=== PATIENT | male | born 1945 | race Caucasian/White ===

== ENCOUNTER 2020-12-26 16:22 | Inpatient (IN) ==
[2020-12-26] MEDS ORDERED: Folic Acid 1 MG in 0.9 % Sodium Chloride 50 ML IVPB ONE (17:07)
[2020-12-26] MEDS ORDERED: *HR* LORazepam 2 MG/ML VIAL IVP ONE (17:07)
[2020-12-26] MEDS ORDERED: Thiamine (B-1) 200 MG/2 ML VIAL IM ONE (17:07)
[2020-12-26] MEDS ORDERED: 0.9 % Sodium Chloride 1,000 ML IVC ONE (17:07)
[2020-12-26 17:25] LABS: Basophils % 0.4 %; Eosinophils # 0.1 K/mcL (0.0-0.6); Eosinophils % 0.9 %; Hematocrit 38.4 % (37.5-50.1); Hemoglobin 13.6 g/dL (12.9-16.9); Immature Granulocytes % 0.7 % (0-4); Lymphocytes # 3.1 K/mcL (0.6-4.6); Mean Corpuscular HGB Conc 35.4 g/dL (31.6-35.5); Mean Corpuscular Volume 81.9 fL (83.0-100.0); Mean Platelet Volume 11.4 fL (9.4-12.4); Monocytes # 0.9 K/mcL (0.0-1.3); Monocytes % 12.9 %; Neutrophils # 2.8 K/mcL (1.6-8.9); Platelet Count 182 K/mcL (140-400); Red Blood Count 4.69 M/mcL (4.19-5.50); Red Cell Distribution Width 12.2 % (11.5-14.5); Segmented Neutrophils % 40.1 %
[2020-12-26 17:53] LABS: Alanine Aminotransferase 242 Units/L (7-52); Albumin 4.3 g/dL (3.5-5.7); Albumin/Globulin Ratio 1.5 (1.1-2.2); Alkaline Phosphatase 86 Units/L (34-104); Aspartate Amino Transferase 170 Units/L (13-39); BUN/Creatinine Ratio 9 (6-26); Bilirubin,Total 1.3 mg/dL (0.3-1.0); Blood Urea Nitrogen 11 mg/dL (8-23); Calcium 8.7 mg/dL (8.6-10.3); Carbon Dioxide 22 mEq/L (23-29); Chloride 85 mEq/L (98-107); Ethanol < 10 mg/dL (Less than 10); Globulin 2.9 g/dL (2.4-3.5); Glucose 229 mg/dL (70-105); Lipase 15 Units/L (11-82); Magnesium 1.8 mg/dL (1.6-2.6); Osmolality,Calculated 253 (280-300); Potassium 4.2 mEq/L (3.5-5.1); Sodium 118 mEq/L (136-145); Total Protein 7.2 g/dL (6.4-8.9); eGFR For African Americans > 60 (> 60); eGFR For Non-African Americans > 60 (> 60)
[2020-12-26 19:44] LABS: Bacteria,Urine Few per hpf (None-Few); Bilirubin,Urine Negative (Negative); Blood,Urine Negative (Negative); Clarity,Urine Clear (Clear); Color,Urine Light-Yellow (Yellow); Glucose,Urine (UA) Normal (Normal); Hyaline Casts,Urine Few per lpf (None Seen); Ketones,Urine 10 mg/dL (Negative); Leukocyte Esterase,Urine Negative (Negative); Nitrite,Urine Negative (Negative); Protein,Urine 30 mg/dL (Neg-Trace); RBC,Urine 0-3 per hpf (0-3); Specific Gravity,Urine 1.009 (1.010-1.025); Urobilinogen,Urine Normal (Normal); WBC,Urine 0-3 per hpf (0-3)
[2020-12-26 20:00] LABS: Amphetamine Screen,Urine Negative ng/mL (Cutoff=1000); Barbiturate Screen,Urine Negative ng/mL (Cutoff=200); Benzodiazepines Screen,Urine Negative ng/mL (Cutoff=200); Cannabinoid Screen,Urine Negative ng/mL (Cutoff = 50); Cocaine Screen,Urine Negative ng/mL (Cutoff= 300); Opiate Screen,Urine Negative ng/mL (Cutoff=300); Phencyclidine Screen,Urine Negative ng/mL (Cutoff=25)
[2020-12-26] MEDS ORDERED: Naloxone 0.4 MG/ML INJ IVP PRN (21:46)
[2020-12-26] MEDS ORDERED: Ondansetron 4 MG/2 ML VIAL IVP PRN (21:46)
[2020-12-26 22:08] LABS: BUN/Creatinine Ratio 10 (6-26); Blood Urea Nitrogen 11 mg/dL (8-23); Calcium 8.1 mg/dL (8.6-10.3); Carbon Dioxide 22 mEq/L (23-29); Chloride 89 mEq/L (98-107); Glucose 225 mg/dL (70-105); Osmolality,Calculated 256 (280-300); Potassium 4.3 mEq/L (3.5-5.1); Sodium 120 mEq/L (136-145); eGFR For African Americans > 60 (> 60); eGFR For Non-African Americans > 60 (> 60)
[2020-12-26] MEDS: *HR* LORazepam 2 MG/ML VIAL IVP PRN (22:53)
[2020-12-26] MEDS ORDERED: *HR* LORazepam 2 MG/ML VIAL IVP PRN (23:00)
[2020-12-27] MEDS ORDERED: *HR* LORazepam 2 MG/ML VIAL IVP PRN (00:17)
[2020-12-27] MEDS ORDERED: Dextrose Gel 15 GM/37.5 ML TUBE PO PRN ×2 (01:11)
[2020-12-27] MEDS ORDERED: *HR* Dextrose 50 % in Water (Vial) 50 ML VIAL IVP PRN (01:11)
[2020-12-27] MEDS ORDERED: D5% in Water 1,000 ML IVC PRN (01:11)
[2020-12-27] MEDS: Thiamine (B-1) 100 MG, Folic Acid 1 MG, MVI, adult with vitamin K 10 ML in 0.9 % Sodi... IVPB SCH ×2 (02:22→17:35)
[2020-12-27 02:57] LABS: Hemoglobin 11.7 g/dL (12.9-16.9); Mean Corpuscular HGB Conc 35.5 g/dL (31.6-35.5); Mean Corpuscular Volume 81.9 fL (83.0-100.0); Mean Platelet Volume 10.6 fL (9.4-12.4); Platelet Count 125 K/mcL (140-400); Red Blood Count 4.03 M/mcL (4.19-5.50); Red Cell Distribution Width 12.2 % (11.5-14.5)
[2020-12-27 03:18] LABS: BUN/Creatinine Ratio 12 (6-26); Blood Urea Nitrogen 12 mg/dL (8-23); Carbon Dioxide 20 mEq/L (23-29); Chloride 91 mEq/L (98-107); Glucose 234 mg/dL (70-105); Osmolality,Calculated 259 (280-300); Potassium 4.2 mEq/L (3.5-5.1); Sodium 121 mEq/L (136-145); eGFR For African Americans > 60 (> 60); eGFR For Non-African Americans > 60 (> 60)
[2020-12-27 03:35] LABS: Albumin 3.4 g/dL (3.5-5.7); Albumin/Globulin Ratio 1.4 (1.1-2.2); Bilirubin,Direct 0.4 mg/dL (0.0-0.2); Bilirubin,Indirect 0.9 mg/dL (0.0-1.0); Bilirubin,Total 1.3 mg/dL (0.3-1.0); Globulin 2.4 g/dL (2.4-3.5); Thyroid Stimulating Hormone 4.396 mcIU/mL (0.340-5.600); Total Protein 5.8 g/dL (6.4-8.9)
[2020-12-27] MEDS: Insulin LISPRO 300 UNITS/3 ML VIAL SUBQ SCH ×4 (08:39→21:00)
[2020-12-27] MEDS ORDERED: 0.9 % Sodium Chloride 1,000 ML IVC SCH (08:45)
[2020-12-27] MEDS ORDERED: Thiamine (B-1) 100 MG TABLET PO SCH (09:00)
[2020-12-27] MEDS ORDERED: Folic Acid 1 MG TABLET PO SCH (09:00)
[2020-12-27] MEDS: *HR* LORazepam 2 MG/ML VIAL IVP PRN ×2 (09:43→21:01)
[2020-12-27 15:15] LABS: Hepatitis B Surface Antigen Nonreactive (Nonreactive)
[2020-12-27 15:43] LABS: Hepatitis C Virus Antibody Nonreactive (Nonreactive)
[2020-12-27 15:44] LABS: Hepatitis B Core IgM Nonreactive (Nonreactive)
[2020-12-27 15:48] LABS: Hepatitis A Antibody IgM Nonreactive (Nonreactive)
[2020-12-27] MEDS: Insulin DETEMIR 100 UNIT/ML X5UNITS SUBQ SCH (21:00)
[2020-12-27] MEDS: 0.9 % Sodium Chloride 1,000 ML IVC SCH (23:07)
[2020-12-28 04:03] LABS: BUN/Creatinine Ratio 11 (6-26); Blood Urea Nitrogen 13 mg/dL (8-23); Calcium 8.2 mg/dL (8.6-10.3); Carbon Dioxide 21 mEq/L (23-29); Chloride 97 mEq/L (98-107); Glucose 190 mg/dL (70-105); Osmolality,Calculated 267 (280-300); Potassium 3.9 mEq/L (3.5-5.1); Sodium 126 mEq/L (136-145); eGFR For African Americans > 60 (> 60); eGFR For Non-African Americans 59 (> 60)
[2020-12-28] MEDS: *HR* LORazepam 2 MG/ML VIAL IVP PRN ×2 (08:07→22:25)
[2020-12-28] MEDS: Insulin LISPRO 300 UNITS/3 ML VIAL SUBQ SCH ×4 (08:09→20:33)
[2020-12-28] MEDS: 0.9 % Sodium Chloride 1,000 ML IVC SCH (17:06)
[2020-12-28] MEDS: Thiamine (B-1) 100 MG, Folic Acid 1 MG, MVI, adult with vitamin K 10 ML in 0.9 % Sodi... IVPB SCH (17:11)
[2020-12-28] MEDS: Insulin DETEMIR 100 UNIT/ML X5UNITS SUBQ SCH (20:34)
[2020-12-29 03:46] LABS: Basophils % 0.5 %; Eosinophils # 0.2 K/mcL (0.0-0.6); Eosinophils % 3.6 %; Hematocrit 34.9 % (37.5-50.1); Immature Granulocytes % 1.2 % (0-4); Lymphocytes % 36.8 %; Mean Corpuscular HGB Conc 34.4 g/dL (31.6-35.5); Mean Corpuscular Hemoglobin 29.6 pg (28.0-33.3); Mean Corpuscular Volume 86.2 fL (83.0-100.0); Monocytes # 0.8 K/mcL (0.0-1.3); Monocytes % 19.6 %; Neutrophils # 1.6 K/mcL (1.6-8.9); Platelet Count 140 K/mcL (140-400); Red Blood Count 4.05 M/mcL (4.19-5.50); Red Cell Distribution Width 12.6 % (11.5-14.5); Segmented Neutrophils % 38.3 %; White Blood Count 4.2 K/mcL (4.3-11.1)
[2020-12-29 03:49] LABS: Lymphocytes # 1.6 K/mcL (0.6-4.6)
[2020-12-29 04:07] LABS: BUN/Creatinine Ratio 9 (6-26); Blood Urea Nitrogen 11 mg/dL (8-23); Calcium 8.3 mg/dL (8.6-10.3); Carbon Dioxide 22 mEq/L (23-29); Chloride 101 mEq/L (98-107); Glucose 210 mg/dL (70-105); Osmolality,Calculated 276 (280-300); Sodium 130 mEq/L (136-145); eGFR For African Americans > 60 (> 60); eGFR For Non-African Americans 58 (> 60)
[2020-12-29 04:12] LABS: Platelet Estimate Normal (Normal)
[2020-12-29] MEDS: Insulin LISPRO 300 UNITS/3 ML VIAL SUBQ SCH ×4 (08:12→20:00)
[2020-12-29] MEDS: 0.9 % Sodium Chloride 1,000 ML IVC SCH (09:47)
[2020-12-29] MEDS: Insulin DETEMIR 100 UNIT/ML X5UNITS SUBQ SCH (19:59)
[2020-12-29] MEDS: *HR* LORazepam 2 MG/ML VIAL IVP PRN (21:00)
[2020-12-30 00:41] LABS: Basophils % 0.7 %; Eosinophils # 0.2 K/mcL (0.0-0.6); Eosinophils % 4.2 %; Hematocrit 35.7 % (37.5-50.1); Hemoglobin 12.3 g/dL (12.9-16.9); Immature Granulocytes % 2.3 % (0-4); Lymphocytes # 1.5 K/mcL (0.6-4.6); Mean Corpuscular HGB Conc 34.5 g/dL (31.6-35.5); Mean Corpuscular Hemoglobin 29.8 pg (28.0-33.3); Mean Corpuscular Volume 86.4 fL (83.0-100.0); Mean Platelet Volume 10.9 fL (9.4-12.4); Monocytes # 0.6 K/mcL (0.0-1.3); Monocytes % 14.7 %; Neutrophils # 1.9 K/mcL (1.6-8.9); Platelet Count 176 K/mcL (140-400); Red Blood Count 4.13 M/mcL (4.19-5.50); Red Cell Distribution Width 12.9 % (11.5-14.5); Segmented Neutrophils % 44.1 %; White Blood Count 4.3 K/mcL (4.3-11.1)
[2020-12-30 00:46] LABS: BUN/Creatinine Ratio 12 (6-26); Blood Urea Nitrogen 15 mg/dL (8-23); Calcium 8.5 mg/dL (8.6-10.3); Carbon Dioxide 21 mEq/L (23-29); Chloride 99 mEq/L (98-107); Glucose 266 mg/dL (70-105); Osmolality,Calculated 274 (280-300); Potassium 4.2 mEq/L (3.5-5.1); Sodium 127 mEq/L (136-145); eGFR For African Americans > 60 (> 60); eGFR For Non-African Americans 58 (> 60)
[2020-12-30] MEDS: *HR* LORazepam 2 MG/ML VIAL IVP PRN ×3 (01:03→16:06)
[2020-12-30] MEDS: 0.9 % Sodium Chloride 1,000 ML IVC SCH (04:07)
[2020-12-30] MEDS: Insulin LISPRO 300 UNITS/3 ML VIAL SUBQ SCH ×4 (08:19→20:25)
[2020-12-30 13:45] LABS: Estimated Average Glucose 252 mg/dl; Hemoglobin A1C 10.4 %
[2020-12-30] MEDS: Insulin DETEMIR 100 UNIT/ML X5UNITS SUBQ SCH (20:23)
[2020-12-31] MEDS: *HR* LORazepam 2 MG/ML VIAL IVP PRN ×2 (00:47→20:35)
[2020-12-31 02:36] LABS: Basophils % 0.9 %; Eosinophils # 0.2 K/mcL (0.0-0.6); Eosinophils % 3.5 %; Hematocrit 36.6 % (37.5-50.1); Hemoglobin 12.1 g/dL (12.9-16.9); Immature Granulocytes % 1.2 % (0-4); Lymphocytes # 1.6 K/mcL (0.6-4.6); Lymphocytes % 37.9 %; Mean Corpuscular HGB Conc 33.1 g/dL (31.6-35.5); Mean Corpuscular Hemoglobin 28.9 pg (28.0-33.3); Mean Corpuscular Volume 87.4 fL (83.0-100.0); Mean Platelet Volume 10.3 fL (9.4-12.4); Monocytes # 0.7 K/mcL (0.0-1.3); Monocytes % 16.9 %; Neutrophils # 1.7 K/mcL (1.6-8.9); Platelet Count 171 K/mcL (140-400); Red Blood Count 4.19 M/mcL (4.19-5.50); Red Cell Distribution Width 13.1 % (11.5-14.5); Segmented Neutrophils % 39.6 %; White Blood Count 4.3 K/mcL (4.3-11.1)
[2020-12-31 02:54] LABS: BUN/Creatinine Ratio 15 (6-26); Blood Urea Nitrogen 16 mg/dL (8-23); Calcium 8.7 mg/dL (8.6-10.3); Carbon Dioxide 25 mEq/L (23-29); Chloride 98 mEq/L (98-107); Glucose 229 mg/dL (70-105); Osmolality,Calculated 278 (280-300); Potassium 4.2 mEq/L (3.5-5.1); Sodium 130 mEq/L (136-145); eGFR For African Americans > 60 (> 60); eGFR For Non-African Americans > 60 (> 60)
[2020-12-31] MEDS: Insulin LISPRO 300 UNITS/3 ML VIAL SUBQ SCH ×4 (08:25→19:45)
[2020-12-31] MEDS: Insulin DETEMIR 100 UNIT/ML X5UNITS SUBQ SCH ×2 (08:35→19:44)
[2021-01-01] MEDS: *HR* LORazepam 2 MG/ML VIAL IVP PRN (01:13)
[2021-01-01] MEDS: Insulin LISPRO 300 UNITS/3 ML VIAL SUBQ SCH ×4 (07:34→20:54)
[2021-01-01 07:48] LABS: Eosinophils # 0.2 K/mcL (0.0-0.6); Eosinophils % 4.6 %; Hematocrit 37.5 % (37.5-50.1); Hemoglobin 12.4 g/dL (12.9-16.9); Lymphocytes # 1.7 K/mcL (0.6-4.6); Lymphocytes % 43.5 %; Mean Corpuscular HGB Conc 33.1 g/dL (31.6-35.5); Mean Corpuscular Hemoglobin 28.9 pg (28.0-33.3); Mean Corpuscular Volume 87.4 fL (83.0-100.0); Mean Platelet Volume 10.2 fL (9.4-12.4); Monocytes # 0.6 K/mcL (0.0-1.3); Monocytes % 16.4 %; Neutrophils # 1.3 K/mcL (1.6-8.9); Platelet Count 166 K/mcL (140-400); Red Blood Count 4.29 M/mcL (4.19-5.50); Red Cell Distribution Width 13.2 % (11.5-14.5); Segmented Neutrophils % 33.5 %; White Blood Count 3.9 K/mcL (4.3-11.1)
[2021-01-01 08:03] LABS: BUN/Creatinine Ratio 16 (6-26); Blood Urea Nitrogen 17 mg/dL (8-23); Calcium 9.1 mg/dL (8.6-10.3); Carbon Dioxide 26 mEq/L (23-29); Chloride 100 mEq/L (98-107); Glucose 209 mg/dL (70-105); Osmolality,Calculated 284 (280-300); Potassium 4.2 mEq/L (3.5-5.1); Sodium 133 mEq/L (136-145); eGFR For African Americans > 60 (> 60); eGFR For Non-African Americans > 60 (> 60)
[2021-01-01] MEDS: hydrOXYzine pamoate 25 MG CAPSULE PO PRN (09:31)
[2021-01-01] MEDS: Insulin DETEMIR 100 UNIT/ML X5UNITS SUBQ SCH ×2 (09:31→20:54)
[2021-01-01] MEDS: *HR* Heparin 5,000 UNIT/ML VIAL SQ SCH (17:25)
[2021-01-02] MEDS: hydrOXYzine pamoate 25 MG CAPSULE PO PRN (02:38)
[2021-01-02 03:23] LABS: Basophils % 0.8 %; Eosinophils # 0.2 K/mcL (0.0-0.6); Eosinophils % 4.4 %; Hematocrit 36.2 % (37.5-50.1); Hemoglobin 12.3 g/dL (12.9-16.9); Immature Granulocytes % 0.5 % (0-4); Lymphocytes # 1.8 K/mcL (0.6-4.6); Lymphocytes % 45.6 %; Mean Corpuscular Hemoglobin 30.1 pg (28.0-33.3); Mean Corpuscular Volume 88.5 fL (83.0-100.0); Mean Platelet Volume 10.4 fL (9.4-12.4); Monocytes # 0.7 K/mcL (0.0-1.3); Monocytes % 18.2 %; Neutrophils # 1.2 K/mcL (1.6-8.9); Platelet Count 170 K/mcL (140-400); Red Blood Count 4.09 M/mcL (4.19-5.50); Red Cell Distribution Width 13.2 % (11.5-14.5); Segmented Neutrophils % 30.5 %; White Blood Count 3.9 K/mcL (4.3-11.1)
[2021-01-02 03:43] LABS: BUN/Creatinine Ratio 14 (6-26); Blood Urea Nitrogen 18 mg/dL (8-23); Calcium 9.1 mg/dL (8.6-10.3); Carbon Dioxide 25 mEq/L (23-29); Chloride 101 mEq/L (98-107); Glucose 165 mg/dL (70-105); Osmolality,Calculated 284 (280-300); Potassium 4.2 mEq/L (3.5-5.1); Sodium 134 mEq/L (136-145); eGFR For African Americans > 60 (> 60); eGFR For Non-African Americans 55 (> 60)
[2021-01-02] MEDS: *HR* Heparin 5,000 UNIT/ML VIAL SQ SCH ×2 (05:51→17:32)
[2021-01-02] MEDS: Insulin LISPRO 300 UNITS/3 ML VIAL SUBQ SCH ×4 (07:37→21:08)
[2021-01-02] MEDS: Insulin DETEMIR 100 UNIT/ML X5UNITS SUBQ SCH ×2 (07:48→21:27)
[2021-01-02 15:08] LABS: Influenza A PCR Negative (Negative); Influenza B PCR Negative (Negative); Resp. Syncytial Virus PCR Negative (Negative)
[2021-01-02 15:27] LABS: SARS-CoV-2 by PCR (In House) Negative (Negative)
[2021-01-03] MEDS: hydrOXYzine pamoate 25 MG CAPSULE PO PRN (04:06)
[2021-01-03] MEDS: *HR* Heparin 5,000 UNIT/ML VIAL SQ SCH (06:02)
[2021-01-03 08:04] VITALS: BP 143/78
[2021-01-03] MEDS: Insulin LISPRO 300 UNITS/3 ML VIAL SUBQ SCH (09:49)
[2021-01-03] MEDS: Insulin DETEMIR 100 UNIT/ML X5UNITS SUBQ SCH (09:49)
== END 2021-01-03 12:35 | DRG 896 ==
LOC: EMEROOARM 16:22 → 2ANU 16:22 → SUATTDRO 21:18 → 2ANU 22:04 → SUATTDRO 12-28 18:35
PROVIDERS: ADMIT Family Medicine; ATTEND General Practice